=== PATIENT | female | born 1985 | race Caucasian/White ===

== ENCOUNTER → 2016-09-05 | Outpatient (CLI) | payer BC ==
[~2016-09-05] MED LIST: Iopamidol 755 Mg/ML 100 ML Bottle IVPUSH STA
[2016-09-05] MEDS: Iopamidol 612 MG/ML 100 ML Bottle IVPUSH ONE (16:14)
--- NOTE | 2016-09-06 20:24 | US ---
EXAMINATION: Hysterosalpingogram. HISTORY: Infertility. Evaluate for tubal patency. PROCEDURE/FINDINGS: Written informed consent was obtained from the patient. Perineum was prepped wit h Betadine and after placement of vaginal speculum, the cervix was prepped with Betadine. A 5 Cameroonian catheter was placed and after inflation of the balloon, 10 cc of contrast was injected until cornua l regions are filled and multiple views of the pelvis are obtained. The uterine cavity is normal in configuration. No suspicious filling defects are seen. The right and left fallopian tubes are patent and spillage of contrast is noted into peritoneal cavi ty bilaterally. IMPRESSION: Patent fallopian tubes bilaterally.
== END | disposition home or self-care (01) ==
LOC: MW.DI 11:13
PROVIDERS: ATTEND Obstetrics & Gynecology
DX: Z31.49 Encounter for other procreative investigation and testing (principal)
CPT/HCPCS: 58340; 74740; Q9967

== ENCOUNTER 2018-07-13 07:19 | Inpatient (IN) | payer BC ==
[2018-07-13] MEDS ORDERED: Sodium Chloride 0.9% 2.5 ML Syringe FLUSH PRN (07:50)
[2018-07-13] MEDS ORDERED: ceFAZolin 2 GM in Premix Bag 1 BAG IV ONE (07:50)
[2018-07-13] MEDS ORDERED: Citric Acid/Sodium Citrate Solution 30 ML Cup PO ONE (07:50)
[2018-07-13] MEDS ORDERED: Oxytocin/0.9 % Sodium Chloride 30 UNIT/500 ML BAG IV SCH (08:00)
[2018-07-13] MEDS: Sodium Chloride 0.9% 10 ML Syringe FLUSH PRN ×2 (08:08→23:40)
[2018-07-13] MEDS: Lactated Ringers 1,000 ML IV SCH ×3 (08:10→10:17)
[2018-07-13] MEDS ORDERED: Sodium Chloride 0.9% 40 ML ONE (08:51)
[2018-07-13] MEDS ORDERED: ceFAZolin 1 GM Vial ONE (08:51)
[2018-07-13] MEDS ORDERED: ePHEDrine 50 MG/ML SDV ONE (08:51)
[2018-07-13] MEDS ORDERED: Ondansetron 4 MG/2 ML SDV ONE (08:51)
--- NOTE | 2018-07-13 08:58 | PCM.PREANE ---
Preanesthetic Assessment - Anesthesia/Transfusion/Family Hx Anesthesia History: Prior Anesthesia Without Reaction (prior scheduled c section 6 years ago) Transfusion History: No Prior Transfusion(s) - Review of Systems General: No Symptoms Pulmonary: No Symptoms Cardiovascular: No Symptoms Gastrointestinal: No Symptoms Neurological: No Symptoms Other: Reports: None - Physical Assessment NPO Status Date: 07/12/18 Height: 5 ft 4.17 in Weight: 102.058 kg ASA Class: 2 Mental Status: Alert & Oriented x3 Airway Class: Mallampati = 1 Dentition: Reports: Broken Tooth/Teeth, Caries ROM/Head Extension: Full Lungs: Clear to Auscultation, Normal Respiratory Effort Cardiovascular: Regular Rate, Regular Rhythm - Lab Values: Laboratory Last Values WBC 9.15 K/uL (4.0-11.0) 07/13/18 08:07 RBC 4.22 M/uL (4.30-5.90) L 07/13/18 08:07 Hgb 12.7 g/dL (12.0-16.0) 07/13/18 08:07 Hct 37.2 % (36.0-46.0) 07/13/18 08:07 MCV 88.2 fL (80.0-98.0) 07/13/18 08:07 MCH 30.1 pg (27.0-32.0) 07/13/18 08:07 MCHC 34.1 g/dL (31.0-37.0) 07/13/18 08:07 RDW Std Deviation 45.7 fl (28.0-62.0) 07/13/18 08:07 RDW Coeff of Albert 14 % (11.0-15.0) 07/13/18 08:07 Plt Count 206 K/uL (150-400) 07/13/18 08:07 MPV 10.90 fL (7.40-12.00) 07/13/18 08:07 Nucleated RBC % 0.0 /100WBC 07/13/18 08:07 Nucleated RBCs # 0 K/uL 07/13/18 08:07 - Allergies Allergies/Adverse Reactions: Allergies Allergy/AdvReac Type Severity Reaction Status Date / Time TB skin test Allergy Rash Uncoded 07/08/18 11:54 - Blood Blood Available: Yes - Anesthesia Plan Pre-Op Medication Ordered: Antacids - Acknowledgements Anesthesia Type Planned: Spinal Pt an Appropriate Candidate for the Planned Anesthesia: Yes Alternatives and Risks of Anesthesia Discussed w Pt/Guardian: Yes Pt/Guardian Understands and Agrees with Anesthesia Plan: Yes Additional Comments: PMH: term , notin labor, hx of gest DM with first (not with this ) PLAN: spinal with intrathecal duramorph PreAnesthesia Questionnaire HEENT History: Reports: Allergic Rhinitis Cardiovascular History: Reports: None Respiratory History: Reports: Asthma Other Respiratory History: hx of sports induced asthma-does not have any inhalers at this time, no er visits in the past year, and she in not taking steroids. Gastrointestinal History: Reports: Other (See Below) Other Gastrointestinal History: occasional heartburn Genitourinary History: Reports: None TEACHING YOUNG History: Reports: Musculoskeletal History: Reports: None Neurological History: Reports: None Psychiatric History: Reports: None Endocrine/Metabolic History: Reports: Diabetes, Gestational, Obesity/BMI 30+ Hematologic History: Reports: None Immunologic History: Reports: None Oncologic (Cancer) History: Reports: None Dermatologic History: Reports: None - Past Surgical History Head Surgeries/Procedures: Reports: None HEENT Surgical History: Reports: Myringotomy w Tube(s), Oral Surgery Respiratory Surgical History: Reports: None GI Surgical History: Reports: None Female Surgical History: Reports: Section, D&C Other Female Surgeries/Procedures: hysteroscopy with polypectomy with D&C - SUBSTANCE USE Smoking Status *Q: Never Smoker Tobacco Use Within Last Twelve Months: No Second Hand Smoke Exposure: No Recreational Drug Use History: No - HOME MEDS Home Medications: Home Meds Cetirizine [ZyrTEC] 10 mg PO DAILY 06/15/18 [History] Pnv No.95/Ferrous Fum/Folic AC [ Caplet] 1 each PO DAILY 06/15/18 [ History] Calcium Carbonate [Tums] 1 tab.chew CHEW ASDIRECTED PRN 07/08/18 [History] - CURRENT (IN HOUSE) MEDS Current Meds: Current Medications Lactated Ringer's (Ringers, Lactated) 1,000 mls @ 500 mls/hr IV BOLUS BHARATI Last Admin: 07/13/18 08:10 Dose: 999 mls/hr Oxytocin/Sodium Chloride (Oxytocin 30 Unit/500 Ml-Ns) 30 unit in 500 mls @ 250 mls/hr IV TITRATE BHARATI Sodium Chloride (Saline Flush) 10 ml FLUSH ASDIRECTED PRN PRN Reason: Keep Vein Open Last Admin: 07/13/18 08:08 Dose: 10 ml Sodium Chloride (Saline Flush) 2.5 ml FLUSH ASDIRECTED PRN PRN Reason: Keep Vein Open Discontinued Medications Citric Acid/Sodium Citrate (Bicitra Solution) 30 ml PO ONETIME ONE Stop: 07/13/18 07:51 Cefazolin Sodium/Dextrose 2 gm (/ Premix) 50 mls @ 100 mls/hr IV ONETIME ONE Stop: 07/13/18 08:19
[2018-07-13] MEDS ORDERED: Oxytocin/0.9 % Sodium Chloride 30 UNIT/500 ML BAG ONE (10:01)
[2018-07-13] MEDS ORDERED: Phenylephrine 1% 10 MG/ML SDV ONE (10:02)
[2018-07-13] MEDS ORDERED: Morphine PF 10 MG/10 ML SDV ONE (10:05)
[2018-07-13] MEDS ORDERED: Nalbuphine 10 MG/1 ML Vial IVPUSH PRN (10:50)
[2018-07-13] MEDS ORDERED: fentaNYL 100 MCG/2 ML SDV IVPUSH PRN (10:50)
[2018-07-13] MEDS ORDERED: HYDROmorphone 2 MG/ML Syringe IVPUSH ONE (10:50)
[2018-07-13] MEDS ORDERED: Midazolam 1 MG/ML 2 ML SDV ONE (11:03)
[2018-07-13] MEDS ORDERED: Sodium Chloride 0.9% 20 ML ONE (11:04)
[2018-07-13] MEDS ORDERED: Bisacodyl 10 MG Supp RECTAL PRN (11:45)
[2018-07-13] MEDS ORDERED: diphenhydrAMINE 50 MG/ML SDV IVPUSH PRN (11:45)
[2018-07-13] MEDS ORDERED: Lactated Ringers 1,000 ML IV SCH (11:45)
[2018-07-13] MEDS ORDERED: Lanolin 100% Cream 7 GM Tube TOP PRN (11:45)
[2018-07-13] MEDS ORDERED: Ondansetron 4 MG/2 ML SDV IVPUSH PRN (11:45)
[2018-07-13] MEDS ORDERED: Acetaminophen/oxyCODONE 325-5 MG Tab PO PRN ×2 (11:45)
[2018-07-13] MEDS ORDERED: Ibuprofen 800 MG Tab PO PRN (11:45)
--- NOTE | 2018-07-13 11:57 | PCM.OPNOTE ---
- General Post-Op/Procedure Note Date of Surgery/Procedure: 07/13/18 Operative Procedure(s): Repeat elective section Findings: Male infant, wt 3840 grams. Apgard 9 and 9. Grossly normal placenta with vessel cord. Normal appearing uterus, tubes and ovaries. No adhesions Pre Op Diagnosis: 1) IUP at 39 weeks. 2) Previous c-s ection, declined Post-Op Diagnosis: Same Anesthesia Technique: Spinal Primary Surgeon: Sybil Jiménez Fluid Replacement, Intraop: 1,200 Output, Urine Amount: 250 EBL in mLs: 700 Complications: None Condition: Good
[2018-07-13] MEDS: Ketorolac 30 MG/ML SDV IVPUSH SCH ×3 (12:02→23:37)
--- NOTE | 2018-07-13 12:12 | PCM.POSTAN ---
POST ANESTHESIA ASSESSMENT - MENTAL STATUS Mental Status: Alert, Oriented - RESPIRATORY Respiratory Status: Respiratory Rate WNL, Airway Patent, O2 Saturation Stable - CARDIOVASCULAR CV Status: Pulse Rate WNL, Blood Pressure Stable - GASTROINTESTINAL GI Status: No Symptoms - POST OP HYDRATION Hydration Status: Adequate & Stable
[2018-07-13] MEDS: Docusate Sodium 100 MG Cap PO SCH (20:45)
--- NOTE | 2018-07-14 02:04 | OR ---
SURGEON: Sybil Jimnéez MD DATE OF PROCEDURE: 07/13/2018 PREOPERATIVE DIAGNOSES: 1. Term at 39 weeks gestation. 2. Repeat elective section. 3. Prior section, declined . POSTOPERATIVE DIAGNOSES: 1. Term at 39 weeks gestation. 2. Repeat elective section. 3. Prior section, declined . 4. Delivered. PROCEDURE: Repeat low transverse section via Pfannenstiel. ANESTHESIA: Spinal. ESTIMATED BLOOD LOSS: 800 mL. IV FLUIDS: 1200 mL of crystalloid. URINE OUTPUT: 250 mL clear at the end of the procedure. COMPLICATIONS: None. DISPOSITION: Stable to recovery room. FINDINGS: Male infant, weight 3840 g, scores 9 at 9 at one and five minutes respectively. Grossly normal placenta with 3-vessel cord. Grossly normal- appearing uterus, tubes, and ovaries. No intraabdominal or pelvic adhesions visualized. INDICATIONS: Kailyn is a 33-year-old, G2, P1-0-0-1, who was admitted for a repeat elective section for history of a prior section. She declined a trial of labor after section. DESCRIPTION OF PROCEDURE: The patient was taken to the operating room where spinal anesthesia was performed and found to be adequate. She was then prepped and draped in the usual sterile fashion in a dorsal supine position with a leftward tilt. SCDs were placed. She received 2 g of Ancef and appropriate time-out was held. A Pfannenstiel skin incision was made along the old scar with the scalpel and carried through to the underlying layer of fascia with the Bovie. The fascia was incised in the midline and extended laterally with the Johnson scissors. The superior aspect of this fascial incision was grasped with Andreina clamps, elevated, and the underlying rectus muscles were dissected off with the Johnson scissors. Attention was turned to the inferior aspect of this incision which in similar fashion was grasped with Andreina clamps, tented up and the rectus muscle dissected off with the Johnson's. The rectus muscle was in the midline carefully until the parietal peritoneum was reached and this was entered bluntly. A careful sweep digitally underneath the parietal peritoneum revealed no intraabdominal adhesions. The incision was then further extended upwards and downwards with good visualization of the bladder and other internal organs by both blunt and sharp dissection. An Marcello O retractor was then inserted into the abdominal cavity. The vesicouterine peritoneum was identified, grasped with pickups, and entered sharply with the Metzenbaum scissors and a bladder flap was created digitally. The lower uterine segment was then incised in a transverse fashion with the scalpel and extended upwards and downwards bluntly. The 's head was then lifted out of the pelvis and delivered atraumatically followed by the rest of the baby. The baby was vigorous and cried spontaneously at . The cord was double clamped and cut and the was handed over to the awaiting nursery staff. Cord blood and gas samples were obtained. The placenta was then delivered spontaneously via massage. The uterus was cleaned of all clots and debris. The hysterotomy was repaired in two layers using 0 Vicryl. The first layer was repaired in a running locked fashion, and the second imbricating layer was performed to obtain excellent hemostasis. A couple of hemostatic [id number] stitches was placed at the left angle of the hysterotomy using 0 Vicryl to control the bleeding vessel. It was hemostatic thereafter. The gutters were cleaned of all clots and debris, and the tubes and ovaries were inspected. Hemostasis was evident along the hysterotomy site. The Marcello O retractor was removed. The parietal edges were identified and this layer was closed with a 2-0 Vicryl in a running fashion. The subfascial layer was found to be hemostatic. The fascia was then approximated with 0 Vicryl in a running fashion. The subcutaneous layer was made hemostatic with the Bovie. The skin was then closed using subcuticular stitches with a 4-0 Monocryl suture. The patient tolerated the procedure well. Sponge, instrument, and needle counts were reported as correct at the end of the procedure. The patient was taken to the recovery room in stable condition and the baby to the nursery in a stable condition. ADUMVIV / MODL /[id number] CARLOS
[2018-07-14] MEDS: Ketorolac 30 MG/ML SDV IVPUSH SCH ×2 (05:29→12:23)
--- NOTE | 2018-07-14 06:59 | PCM.PNPP ---
- General Info Date of Service: 07/14/18 Functional Status: Reports: Pain Controlled, Tolerating Diet, Ambulating - Review of Systems General: Denies: Fever, Weakness HEENT: Denies: Headaches Pulmonary: Denies: Shortness of Breath, Pleuritic Chest Pain Cardiovascular: Denies: Chest Pain, Palpitations, Dyspnea on Exertion Gastrointestinal: Denies: Abdominal Pain Genitourinary: Denies: Flank Pain - General Info Date of Service: 07/14/18 - Patient Data Vital Signs - Most Recent: Last Vital Signs Temp 36.9 C 07/14/18 04:00 Pulse 75 07/14/18 04:00 Resp 20 07/14/18 05:00 BP 99/57 L 07/14/18 04:00 Pulse Ox 97 07/14/18 05:00 Weight - Most Recent: 225 lb 0.003 oz I&O - Last 24 Hours: Intake & Output 07/13/18 07/13/18 07/14/18 14:59 22:59 06:59 Intake Total 3740 1000 Output Total 990 404 5725 Balance 3240 880 -1175 Lab Results - Last 24 Hours: Laboratory Results - last 24 hr 07/13/18 07/13/18 07/13/18 Range/Units 08:07 08:07 10:24 WBC 9.15 (4.0-11.0) K/uL RBC 4.22 L (4.30-5.90) M/uL Hgb 12.7 (12.0-16.0) g/dL Hct 37.2 (36.0-46.0) % MCV 88.2 (80.0-98.0) fL MCH 30.1 (27.0-32.0) pg MCHC 34.1 (31.0-37.0) g/dL RDW Std Deviation 45.7 (28.0-62.0) fl RDW Coeff of Albert 14 (11.0-15.0) % Plt Count 206 (150-400) K/uL MPV 10.90 (7.40-12.00) fL Nucleated RBC % 0.0 /100WBC Nucleated RBCs # 0 K/uL Cord ABG pH 7.346 (7.18-7.38) Cord ABG Base Excess -3 (-10--2) Cord VBG pH 7.408 (7.25-7.45) Cord VBG Base Excess -2 (-10--2) Blood Type A POSITIVE Antibody Screen NEGATIVE 07/14/18 Range/Units 06:00 WBC (4.0-11.0) K/uL RBC (4.30-5.90) M/uL Hgb 10.3 L (12.0-16.0) g/dL Hct 29.9 L (36.0-46.0) % MCV (80.0-98.0) fL MCH (27.0-32.0) pg MCHC (31.0-37.0) g/dL RDW Std Deviation (28.0-62.0) fl RDW Coeff of Albert (11.0-15.0) % Plt Count (150-400) K/uL MPV (7.40-12.00) fL Nucleated RBC % /100WBC Nucleated RBCs # K/uL Cord ABG pH (7.18-7.38) Cord ABG Base Excess (-10--2) Cord VBG pH (7.25-7.45) Cord VBG Base Excess (-10--2) Blood Type Antibody Screen Med Orders - Current: Current Medications Bisacodyl (Dulcolax) 10 mg RECTAL ONETIME PRN PRN Reason: Constipation Diphenhydramine HCl (Benadryl) 25 mg IVPUSH Q6H PRN PRN Reason: Itching or Nausea Docusate Sodium (Colace) 100 mg PO BID [facility] Last Admin: 07/13/18 20:45 Dose: 100 mg Emollient Ointment (Lansinoh Hpa) 0 gm TOP ASDIRECTED PRN PRN Reason: Sore Nipples Last Admin: 07/13/18 23:40 Dose: 1 tube Fentanyl (Sublimaze) 50 mcg IVPUSH Q5M PRN PRN Reason: Pain (severe 7-10) Stop: 07/14/18 10:50 Lactated Ringer's (Ringers, Lactated) 1,000 mls @ 125 mls/hr IV ASDIRECTED [facility] Last Admin: 07/13/18 15:41 Dose: 125 mls/hr Ibuprofen (Motrin) 800 mg PO Q8H PRN PRN Reason: mild pain or fever Ketorolac Tromethamine (Toradol) 30 mg IVPUSH Q6H [facility] Stop: 07/14/18 11:46 Last Admin: 07/14/18 05:29 Dose: 30 mg Nalbuphine HCl (Nubain) 2.5 mg IVPUSH Q3H PRN PRN Reason: Pruritis Stop: 07/14/18 10:51 Last Admin: 07/13/18 23:33 Dose: 2.5 mg Ondansetron HCl (Zofran) 4 mg IVPUSH Q4H PRN PRN Reason: Nausea/Vomiting Oxycodone/Acetaminophen (Percocet 325-5 Mg) 1 tab PO Q4H PRN PRN Reason: Pain (moderate 4-6) Oxycodone/Acetaminophen (Percocet 325-5 Mg) 2 tab PO Q4H PRN PRN Reason: Pain (moderate 4-6) Discontinued Medications Cefazolin Sodium (Ancef) Confirm Administered Dose 2 gm .ROUTE .STK-MED ONE Stop: 07/13/18 08:52 Citric Acid/Sodium Citrate (Bicitra Solution) 30 ml PO ONETIME ONE Stop: 07/13/18 07:51 Last Admin: 07/13/18 09:25 Dose: 30 ml Ephedrine Sulfate (Ephedrine Sulfate) Confirm Administered Dose 50 mg .ROUTE .STK-MED ONE Stop: 07/13/18 08:52 Hydromorphone HCl (Dilaudid) 2 mg IVPUSH ONETIME ONE Stop: 07/13/18 10:51 Cefazolin Sodium/Dextrose 2 gm (/ Premix) 50 mls @ 100 mls/hr IV ONETIME ONE Stop: 07/13/18 08:19 Lactated Ringer's (Ringers, Lactated) 1,000 mls @ 500 mls/hr IV BOLUS [facility] Last Admin: 07/13/18 10:17 Dose: 999 mls/hr Oxytocin/Sodium Chloride (Oxytocin 30 Unit/500 Ml-Ns) 30 unit in 500 mls @ 250 mls/hr IV TITRATE BHARATI Sodium Chloride (Normal Saline) Confirm Administered Dose 40 mls @ as directed .ROUTE .STK-MED ONE Stop: 07/13/18 08:52 Oxytocin/Sodium Chloride (Oxytocin 30 Unit/500 Ml-Ns) Confirm Administered Dose 30 unit in 500 mls @ as directed .ROUTE .STK-MED ONE Stop: 07/13/18 10:02 Sodium Chloride (Normal Saline) Confirm Administered Dose 20 mls @ as directed .ROUTE .STK-MED ONE Stop: 07/13/18 11:05 Midazolam HCl (Versed 1 Mg/Ml) Confirm Administered Dose 2 mg .ROUTE .STK-MED ONE Stop: 07/13/18 11:04 Morphine Sulfate (Duramorph Pf) Confirm Administered Dose 10 mg .ROUTE .STK-MED ONE Stop: 07/13/18 10:06 Ondansetron HCl (Zofran) Confirm Administered Dose 4 mg .ROUTE .STK-MED ONE Stop: 07/13/18 08:52 Phenylephrine HCl (Saeed-Synephrine) Confirm Administered Dose 10 mg .ROUTE .STK- MED ONE Stop: 07/13/18 10:03 Sodium Chloride (Saline Flush) 10 ml FLUSH ASDIRECTED PRN PRN Reason: Keep Vein Open Last Admin: 07/13/18 23:40 Dose: 10 ml Sodium Chloride (Saline Flush) 2.5 ml FLUSH ASDIRECTED PRN PRN Reason: Keep Vein Open - Interaction Infant Feeding: Breastfed ; Nursed Well, Continues to Breastfeed Support Person: , Mother - Recovery Exam Fundal Tone: Firm Fundal Level: 1 Fingerbreadths Below Umbilicus Fundal Placement: Right Lochia Amount: Scant Lochia Color: Rubra/Red Perineum Description: Intact, Minimal Bruising/Swelling Episiotomy/Laceration: None Urinary Elimination: Not Voiding, Other (see below) (Catheter removed this am, yet to void) - Exam General: Alert, Oriented HEENT: Pupils Equal Neck: Supple Lungs: Clear to Auscultation, Normal Respiratory Effort Cardiovascular: Regular Rate, Regular Rhythm GI/Abdominal Exam: Normal Bowel Sounds, Soft, Non-Tender Extremities: Non-Tender, Pedal Edema Skin: Warm Wound/Incisions: Healing Well Psy/Mental Status: Alert, Normal Affect, Normal Mood - Problem List & Annotations (1) delivery delivered SNOMED Code(s): 515717731 Code(s): O82 - ENCOUNTER FOR DELIVERY WITHOUT INDICATION Status: Acute Current Visit: Yes - Problem List Review Problem List Initiated/Reviewed/Updated: Yes - My Orders Last 24 Hours: My Active Orders 07/13/18 07:50 Non Stress Test [RC] PER UNIT ROUTINE Procedure Site Prep Instruct [RC] ASDIRECTED Up ad [place] [RC] ASDIRECTED Verify Patient Consent Obtain [RC] ASDIRECTED Vital Signs [RC] PER UNIT ROUTINE 07/13/18 07:52 Notify Provider Vital Signs [RC] PRN 07/13/18 11:45 Patient Status [ADT] Routine Ambulate [RC] PER UNIT ROUTINE Communication Order [RC] PER UNIT ROUTINE Communication Order [RC] PER UNIT ROUTINE Communication Order [RC] Per Unit Routine May Shower [RC] ASDIRECTED RT Incentive Spirometry [RC] Q2HWA Acetaminophen/oxyCODONE [Percocet 325-5 MG] 1 tab PO Q4H PRN Acetaminophen/oxyCODONE [Percocet 325-5 MG] 2 tab PO Q4H PRN Bisacodyl [Dulcolax] 10 mg RECTAL ONETIME PRN Ibuprofen [Motrin] 800 mg PO Q8H PRN Ketorolac [Toradol] 30 mg IVPUSH Q6H Lactated Ringers [Ringers, Lactated] 1,000 ml IV ASDIRECTED Lanolin [Lansinoh HPA] See Dose Instructions TOP ASDIRECTED PRN Ondansetron [Zofran] 4 mg IVPUSH Q4H PRN diphenhydrAMINE [Benadryl] 25 mg IVPUSH Q6H PRN Abdominal Binder [OM.PC] Routine Assess Lochia [WOMSER] Per Unit Routine Assess Uterine Involution [WOMSER] Per Unit Routine Breast Pump [WOMSER] Per Unit Routine Peripheral IV Discontinue [OM.PC] Routine Sequential Compression Device [OM.PC] Per Unit Routine Resuscitation Status Routine 07/13/18 11:46 Notify Provider Intake and Out [RC] ASDIRECTED Notify Provider Vital Signs [RC] ASDIRECTED 07/13/18 11:47 Intake and Output [RC] Q4H 07/13/18 21:00 Docusate Sodium [Colace] 100 mg PO BID 07/13/18 Dinner Regular Diet [DIET] - Assessment Assessment:: POD#1 s/p RLTCS, doing well. Stable and afebrile - Plan Plan:: Continue current care and aim for discharge tomorrow.
--- NOTE | 2018-07-14 07:44 | PCM48HPAN ---
Post Anesthesia Note - EVALUATION WITHIN 48HRS OF ANESTHETIC Vital Signs in Normal Range: Yes Patient Participated in Evaluation: Yes Respiratory Function Stable: Yes Airway Patent: Yes Cardiovascular Function Stable: Yes Hydration Status Stable: Yes Pain Control Satisfactory: Yes Nausea and Vomiting Control Satisfactory: Yes Mental Status Recovered: Yes Resp Rate: 20 - COMMENTS/OBSERVATIONS Free Text/Narrative:: Pt states she has been out of bed without problems. Slight itching overnight related to duramorph, but relieved with medication. No apparent anesthesia complications.
[2018-07-14] MEDS: Docusate Sodium 100 MG Cap PO SCH ×2 (09:42→20:18)
[2018-07-14] MEDS ORDERED: Simethicone 80 MG Tab.Chew PO PRN (15:41)
--- NOTE | 2018-07-15 08:12 | PCM.PNPP ---
- General Info Date of Service: 07/15/18 Functional Status: Reports: Pain Controlled, Tolerating Diet, Ambulating, Urinating - Review of Systems General: Denies: Fever, Chills HEENT: Denies: Headaches Pulmonary: Denies: Shortness of Breath, Pleuritic Chest Pain, Cough Cardiovascular: Denies: Chest Pain, Palpitations, Dyspnea on Exertion Gastrointestinal: Denies: Abdominal Pain Genitourinary: Denies: Dysuria, Incontinence, Hematuria, Flank Pain Psychiatric: Reports: Confusion, Depression, Mood Lability, Anxiety - General Info Date of Service: 07/15/18 - Patient Data Vital Signs - Most Recent: Last Vital Signs Temp 36.4 C 07/15/18 04:00 Pulse 85 07/15/18 04:00 Resp 16 07/15/18 04:00 BP 110/61 07/15/18 04:00 Pulse Ox 98 07/15/18 04:00 Weight - Most Recent: 225 lb 0.003 oz Med Orders - Current: Current Medications Bisacodyl (Dulcolax) 10 mg RECTAL ONETIME PRN PRN Reason: Constipation Diphenhydramine HCl (Benadryl) 25 mg IVPUSH Q6H PRN PRN Reason: Itching or Nausea Docusate Sodium (Colace) 100 mg PO BID [facility] Last Admin: 07/14/18 20:18 Dose: 100 mg Emollient Ointment (Lansinoh Hpa) 0 gm TOP ASDIRECTED PRN PRN Reason: Sore Nipples Last Admin: 07/13/18 23:40 Dose: 1 tube Lactated Ringer's (Ringers, Lactated) 1,000 mls @ 125 mls/hr IV ASDIRECTED [facility] Last Admin: 07/13/18 15:41 Dose: 125 mls/hr Ibuprofen (Motrin) 800 mg PO Q8H PRN PRN Reason: mild pain or fever Ondansetron HCl (Zofran) 4 mg IVPUSH Q4H PRN PRN Reason: Nausea/Vomiting Oxycodone/Acetaminophen (Percocet 325-5 Mg) 1 tab PO Q4H PRN PRN Reason: Pain (moderate 4-6) Last Admin: 07/14/18 18:59 Dose: 1 tab Oxycodone/Acetaminophen (Percocet 325-5 Mg) 2 tab PO Q4H PRN PRN Reason: Pain (moderate 4-6) Last Admin: 07/15/18 03:04 Dose: 2 tab Simethicone (Simethicone) 160 mg PO Q6H PRN PRN Reason: gas relief Last Admin: 07/14/18 16:38 Dose: 160 mg Discontinued Medications Cefazolin Sodium (Ancef) Confirm Administered Dose 2 gm .ROUTE .STK-MED ONE Stop: 07/13/18 08:52 Citric Acid/Sodium Citrate (Bicitra Solution) 30 ml PO ONETIME ONE Stop: 07/13/18 07:51 Last Admin: 07/13/18 09:25 Dose: 30 ml Ephedrine Sulfate (Ephedrine Sulfate) Confirm Administered Dose 50 mg .ROUTE .STK-MED ONE Stop: 07/13/18 08:52 Fentanyl (Sublimaze) 50 mcg IVPUSH Q5M PRN PRN Reason: Pain (severe 7-10) Stop: 07/14/18 10:50 Hydromorphone HCl (Dilaudid) 2 mg IVPUSH ONETIME ONE Stop: 07/13/18 10:51 Cefazolin Sodium/Dextrose 2 gm (/ Premix) 50 mls @ 100 mls/hr IV ONETIME ONE Stop: 07/13/18 08:19 Lactated Ringer's (Ringers, Lactated) 1,000 mls @ 500 mls/hr IV BOLUS [facility] Last Admin: 07/13/18 10:17 Dose: 999 mls/hr Oxytocin/Sodium Chloride (Oxytocin 30 Unit/500 Ml-Ns) 30 unit in 500 mls @ 250 mls/hr IV TITRATE [facility] Sodium Chloride (Normal Saline) Confirm Administered Dose 40 mls @ as directed .ROUTE .STK-MED ONE Stop: 07/13/18 08:52 Oxytocin/Sodium Chloride (Oxytocin 30 Unit/500 Ml-Ns) Confirm Administered Dose 30 unit in 500 mls @ as directed .ROUTE .STK-MED ONE Stop: 07/13/18 10:02 Sodium Chloride (Normal Saline) Confirm Administered Dose 20 mls @ as directed .ROUTE .STK-MED ONE Stop: 07/13/18 11:05 Ketorolac Tromethamine (Toradol) 30 mg IVPUSH Q6H [facility] Stop: 07/14/18 11:46 Last Admin: 07/14/18 12:23 Dose: 30 mg Midazolam HCl (Versed 1 Mg/Ml) Confirm Administered Dose 2 mg .ROUTE .STK-MED ONE Stop: 07/13/18 11:04 Morphine Sulfate (Duramorph Pf) Confirm Administered Dose 10 mg .ROUTE .STK-MED ONE Stop: 07/13/18 10:06 Nalbuphine HCl (Nubain) 2.5 mg IVPUSH Q3H PRN PRN Reason: Pruritis Stop: 07/14/18 10:51 Last Admin: 07/13/18 23:33 Dose: 2.5 mg Ondansetron HCl (Zofran) Confirm Administered Dose 4 mg .ROUTE .STK-MED ONE Stop: 07/13/18 08:52 Phenylephrine HCl (Saeed-Synephrine) Confirm Administered Dose 10 mg .ROUTE .STK- MED ONE Stop: 07/13/18 10:03 Sodium Chloride (Saline Flush) 10 ml FLUSH ASDIRECTED PRN PRN Reason: Keep Vein Open Last Admin: 07/13/18 23:40 Dose: 10 ml Sodium Chloride (Saline Flush) 2.5 ml FLUSH ASDIRECTED PRN PRN Reason: Keep Vein Open - Interaction Feeding: Breastfed Infant; Nursed Well, Continues to Breastfeed Support Person: , Mother - Recovery Exam Fundal Tone: Firm Fundal Level: 1 Fingerbreadths Below Umbilicus Fundal Placement: Midline Lochia Amount: Scant Lochia Color: Rubra/Red Perineum Description: Intact, Minimal Bruising/Swelling Episiotomy/Laceration: None Bladder Status: Nonpalpable, Voiding Urinary Elimination: Voided - Exam General: Alert, Oriented Lungs: Clear to Auscultation, Normal Respiratory Effort Cardiovascular: Regular Rate, Regular Rhythm GI/Abdominal Exam: Normal Bowel Sounds Extremities: Non-Tender, Pedal Edema Skin: Warm Wound/Incisions: Healing Well Psy/Mental Status: Alert, Normal Affect, Normal Mood - Problem List & Annotations (1) delivery delivered SNOMED Code(s): 065376178 Code(s): O82 - ENCOUNTER FOR DELIVERY WITHOUT INDICATION Status: Acute Current Visit: Yes - Problem List Review Problem List Initiated/Reviewed/Updated: Yes - Assessment Assessment:: POD#2 s/p RLTCS, doing well. Stable and afebrile Clinically stable for discharge - Plan Plan:: Discharge precautions reviewed Nothing in the vagina for 6 weeks Continue PNV. Bleeding and infection precautions reviewed depression S/S reviewed, encouraged to call with concerns Follow up in clinic- already scheduled
[2018-07-15] MEDS: Docusate Sodium 100 MG Cap PO SCH (09:24)
[2018-07-15 18:08] VITALS: BP 113/65
== END 2018-07-15 12:00 | disposition home or self-care (01) | DRG 540 ==
LOC: MW.OB 07:19
PROVIDERS: ADMIT Obstetrics & Gynecology; ATTEND Obstetrics & Gynecology
PROC: 10D00Z1 Extraction of Products of Conception, Low, Open Approach (ICD-10-PCS; principal; 2018-07-13)
PROC: 6A550ZT Pheresis of Cord Blood Stem Cells, Single (ICD-10-PCS; principal; 2018-07-13)
DX: O34.211 Maternal care for low transverse scar from previous cesarean delivery (principal); N85.8 Other specified noninflammatory disorders of uterus; O99.214 Obesity complicating childbirth; E66.9 Obesity, unspecified; Z3A.39 39 weeks gestation of pregnancy; Z37.0 Single live birth; O99.52 Diseases of the respiratory system complicating childbirth; J45.909 Unspecified asthma, uncomplicated
CPT/HCPCS: 36415; 59025; 82803; 85014; 85018; 85027; 86850; 86900; 86901; A9270-GY; J0690; J1885; J2250; J2270; J2300; J2370; J2405; J2590; J7120

== ENCOUNTER 2022-07-13 08:21 | Emergency (ER) | payer BC ==
[2022-07-13 09:50] LABS: CARBON DIOXIDE,CO2 27.4 mmol/L (21.0-32.0); POTASSIUM,K 3.6 mmol/L (3.5-5.1)
[2022-07-13 11:59] LABS: C. TRACHOMATIS BY PCR NOT DETECTED; N. GONORRHOEAE BY PCR NOT DETECTED
[2022-07-13 12:14] VITALS: BP 117/75; PULSE 80
== END 2022-07-13 11:52 | disposition home or self-care (01) ==
LOC: MW.ED 08:21
DX: O03.9 Complete or unspecified spontaneous abortion without complication (principal); Z88.8 Allergy status to other drugs, medicaments and biological substances
CPT/HCPCS: 36415; 76817; 76817-26; 80053; 81001; 84702; 85025; 87480; 87491; 87510; 87591; 87660; 99283; 99284

== ENCOUNTER 2023-05-09 14:29 | Inpatient (IN) | payer BC ==
[2023-05-09] MEDS ORDERED: Sodium Chloride 0.9% 10 ML Syringe FLUSH PRN (14:42)
[2023-05-09] MEDS ORDERED: Citric Acid/Sodium Citrate Solution 30 ML Cup PO ONE (14:42)
[2023-05-09] MEDS ORDERED: Sodium Chloride 0.9% 20 ML SDV IV PRN (14:42)
[2023-05-09] MEDS ORDERED: Sodium Chloride 0.9% 2.5 ML Syringe FLUSH PRN (14:42)
[2023-05-09] MEDS ORDERED: Lactated Ringers 1,000 ML IV SCH ×2 (14:45→17:30)
[2023-05-09] MEDS ORDERED: Oxytocin/0.9 % Sodium Chloride 30 UNIT/500 ML BAG IV SCH ×2 (14:45→17:30)
[2023-05-09] MEDS ORDERED: fentaNYL 50 MCG/ML SDV IVPUSH PRN (14:53)
[2023-05-09] MEDS ORDERED: droPERidol 5 MG/2 ML SDV IVPUSH PRN (14:53)
[2023-05-09] MEDS ORDERED: Albuterol 0.083% 2.5 MG/3 ML Neb Soln NEB PRN (14:53)
[2023-05-09] MEDS ORDERED: ePHEDrine 50 MG/ML SDV IVPUSH PRN (14:53)
[2023-05-09] MEDS ORDERED: fentaNYL 100 MCG/2 ML SDV IVPUSH PRN (14:53)
[2023-05-09] MEDS ORDERED: Ondansetron 4 MG/2 ML SDV IVPUSH PRN ×3 (14:53→17:24)
[2023-05-09] MEDS ORDERED: diphenhydrAMINE 50 MG/ML SDV IVPUSH PRN ×2 (14:53→17:24)
[2023-05-09] MEDS ORDERED: Metoclopramide 10 MG/2 ML SDV IVPUSH PRN (14:53)
[2023-05-09] MEDS ORDERED: Naloxone 0.4 MG/ML SDV IVPUSH PRN (14:53)
[2023-05-09] MEDS ORDERED: Morphine 2 MG/ML SYRINGE IVPUSH PRN (14:53)
[2023-05-09] MEDS ORDERED: Acetaminophen/oxyCODONE 325-5 MG Tab PO PRN ×2 (14:53→17:24)
[2023-05-09] MEDS ORDERED: HYDROmorphone 1 MG/ML Syringe IVPUSH PRN (14:53)
[2023-05-09 15:00] LABS: HEMATOCRIT 37.2 % (37.0-47.0); HEMOGLOBIN 13.9 g/dL (12.0-16.0); MEAN CORPUSCULAR HEMOGLOBIN 32.8 pg (28.0-32.0); MEAN CORPUSCULAR HGB CONC 37.4 g/dL (32.0-36.0); MEAN CORPUSCULAR VOLUME 87.7 fL (83.0-99.0); MEAN PLATELET VOLUME 10.5 fL (9.4-12.3); PLATELET COUNT,PLT 225 K/uL (150-400); RED BLOOD CELL COUNT 4.24 M/uL (4.10-5.30); WHITE BLOOD CELL COUNT,WBC 11.66 K/uL (3.9-11.3)
[2023-05-09] MEDS ORDERED: Oxytocin 10 Units/1 ML SDV ONE (15:01)
[2023-05-09] MEDS ORDERED: Dexamethasone 4 MG/ML 5 ML MDV ONE (15:01)
[2023-05-09] MEDS ORDERED: Ropivacaine 0.5% 5 MG/ML 30 ML SDV ONE (15:01)
[2023-05-09] MEDS ORDERED: ceFAZolin 1 GM Vial ONE (15:01)
[2023-05-09] MEDS ORDERED: Dexmedetomidine 200 MCG/2 ML SDV ONE (15:01)
[2023-05-09] MEDS ORDERED: Lidocaine 2% 5 ML SDV ONE (15:01)
[2023-05-09] MEDS ORDERED: Phenylephrine 1% 10 MG/ML SDV ONE (15:01)
[2023-05-09] MEDS ORDERED: Ketorolac 30 MG/ML SDV ONE (15:01)
[2023-05-09] MEDS ORDERED: Morphine PF 10 MG/10 ML SDV ONE (15:02)
[2023-05-09] MEDS ORDERED: Tranexamic Acid 1,000 MG/10 ML Vial ONE (15:06)
[2023-05-09 15:40] LABS: A/G RATIO 0.7 (0.9-1.6); ALBUMIN 3.1 g/dL (3.4-5.0); BILIRUBIN TOTAL 0.6 mg/dL (0.2-1.0); CALCIUM 8.9 mg/dL (8.5-10.1); CARBON DIOXIDE,CO2 22.6 mmol/L (21.0-32.0); CREATININE 0.7 mg/dL (0.6-1.0); EST CRCL DRUG DOSING (CG) 99.98 mL/min; POTASSIUM,K 3.7 mmol/L (3.5-5.1); PROTEIN TOTAL,TP 7.3 g/dL (6.4-8.2)
[2023-05-09] MEDS ORDERED: Glycopyrrolate 0.2 MG/ML SDV ONE (15:55)
[2023-05-09] MEDS ORDERED: Bisacodyl 10 MG Supp RECTAL PRN (17:24)
[2023-05-09] MEDS ORDERED: Misoprostol 200 MCG Tab RECTAL PRN (17:24)
[2023-05-09] MEDS ORDERED: Aluminum Hydroxide/Magnesium Hydroxide/Simethicone XS Susp 30 ML Cup PO PRN (17:24)
[2023-05-09] MEDS ORDERED: Lanolin 100% Cream 7 GM Tube TOP PRN (17:24)
[2023-05-09] MEDS ORDERED: Methylergonovine 0.2 MG/1 ML Amp IM PRN (17:24)
[2023-05-09] MEDS ORDERED: Temazepam 15 MG Cap PO PRN (17:24)
[2023-05-09] MEDS ORDERED: Ibuprofen 800 MG Tab PO PRN (17:24)
[2023-05-09] MEDS ORDERED: diphenhydrAMINE 25 MG Cap PO PRN (17:24)
[2023-05-09] MEDS ORDERED: Famotidine 20 MG Tab PO PRN (17:24)
[2023-05-09] MEDS ORDERED: Ketorolac 30 MG/ML SDV IVPUSH SCH (18:00)
[2023-05-09] MEDS ORDERED: Acetaminophen 1,000 MG in Premix Bag 1 BAG IV SCH (18:30)
[2023-05-09] MEDS: Docusate Sodium 100 MG Cap PO SCH (21:01)
[2023-05-09] MEDS: Ketorolac 30 MG/ML SDV IVPUSH SCH (22:34)
[2023-05-09] MEDS: Acetaminophen 1,000 MG in Premix Bag 1 BAG IV SCH (23:58)
[2023-05-09] MEDS: Simethicone 80 MG Tab.Chew PO SCH (23:59)
[2023-05-10] MEDS: Ketorolac 30 MG/ML SDV IVPUSH SCH ×3 (04:14→17:24)
[2023-05-10] MEDS: Acetaminophen 1,000 MG in Premix Bag 1 BAG IV SCH ×3 (05:56→18:00)
[2023-05-10] MEDS: Simethicone 80 MG Tab.Chew PO SCH ×3 (05:57→18:21)
[2023-05-10 06:06] LABS: BASOPHILS ABSOLUTE AUTO 0.01 K/uL (0.00-0.20); BASOPHILS PERCENT AUTO 0.1 % (0.0-1.0); EOSINOPHILS ABSOLUTE AUTO 0.01 K/uL (0.00-0.45); EOSINOPHILS PERCENT AUTO 0.1 % (0.0-6.0); HEMATOCRIT 29.4 % (37.0-47.0); HEMOGLOBIN 10.4 g/dL (12.0-16.0); IMMATURE GRAN ABSOLUTE AUTO 0.12 K/uL (0.00-0.05); IMMATURE GRAN PERCENT AUTO 0.7 % (0.0-0.4); LYMPHOCYTES PERCENT AUTO 12.2 % (24.0-44.0); MEAN CORPUSCULAR HEMOGLOBIN 31.2 pg (28.0-32.0); MEAN CORPUSCULAR HGB CONC 35.4 g/dL (32.0-36.0); MEAN CORPUSCULAR VOLUME 88.3 fL (83.0-99.0); MEAN PLATELET VOLUME 11.1 fL (9.4-12.3); MONOCYTES ABSOLUTE AUTO 1.17 K/uL (0.00-0.80); MONOCYTES PERCENT AUTO 6.5 % (0.0-8.0); NEUTROPHILS ABSOLUTE AUTO 14.56 K/uL (1.80-7.70); NEUTROPHILS PERCENT AUTO 80.4 % (41.0-71.0); PLATELET COUNT,PLT 223 K/uL (150-400); RED BLOOD CELL COUNT 3.33 M/uL (4.10-5.30); WHITE BLOOD CELL COUNT,WBC 18.07 K/uL (3.9-11.3)
[2023-05-10] MEDS: Prenatal Multivitamin with Calcium/Folic Acid/Iron Tab PO SCH (08:26)
[2023-05-10] MEDS: Ferrous Sulfate 325 MG Tab PO SCH ×3 (08:26→18:21)
[2023-05-10] MEDS: Docusate Sodium 100 MG Cap PO SCH ×2 (08:26→21:07)
[2023-05-10] MEDS ORDERED: Ferrous Sulfate 325 MG Tab PO SCH (17:00)
[2023-05-11] MEDS: Simethicone 80 MG Tab.Chew PO SCH ×3 (00:03→11:22)
[2023-05-11] MEDS: Acetaminophen/oxyCODONE 325-5 MG Tab PO PRN ×2 (06:03→12:38)
[2023-05-11] MEDS: Docusate Sodium 100 MG Cap PO SCH (08:10)
[2023-05-11] MEDS: Prenatal Multivitamin with Calcium/Folic Acid/Iron Tab PO SCH (08:10)
[2023-05-11] MEDS: Ferrous Sulfate 325 MG Tab PO SCH ×2 (08:10→11:22)
[2023-05-11 11:36] VITALS: BP 117/59; PULSE 83
[2023-05-11] MEDS ORDERED: Acetaminophen/oxyCODONE 325-5 MG Tab PO PRN (14:17)
== END 2023-05-11 13:16 | disposition home or self-care (01) | DRG 540 ==
LOC: MW.OB 14:29
PROVIDERS: ADMIT Obstetrics & Gynecology; ATTEND Obstetrics & Gynecology
PROC: 10D00Z1 Extraction of Products of Conception, Low, Open Approach (ICD-10-PCS; principal; 2023-05-09 17:00)
DX: O40.3XX0 Polyhydramnios, third trimester, not applicable or unspecified (principal); O99.02 Anemia complicating childbirth; O34.211 Maternal care for low transverse scar from previous cesarean delivery; D62 Acute posthemorrhagic anemia; Z37.0 Single live birth; Z98.890 Other specified postprocedural states; Z3A.37 37 weeks gestation of pregnancy
CPT/HCPCS: 36415; 59025; 80053; 85025; 85027; 86592; 86803; 86850; 86900; 86901; 87340; 87389; A9270-GY; J0131; J0690; J1100; J1885; J2274; J2371; J2590; J2795; J3490; J7120

== ENCOUNTER 2023-07-20 12:53 | Emergency (ER) | payer BC ==
[2023-07-20 13:27] LABS: BASOPHILS ABSOLUTE AUTO 0.04 K/uL (0.00-0.20); BASOPHILS PERCENT AUTO 0.5 % (0.0-1.0); EOSINOPHILS ABSOLUTE AUTO 0.15 K/uL (0.00-0.45); EOSINOPHILS PERCENT AUTO 1.9 % (0.0-6.0); HEMATOCRIT 41.3 % (37.0-47.0); HEMOGLOBIN 14.4 g/dL (12.0-16.0); IMMATURE GRAN ABSOLUTE AUTO 0.02 K/uL (0.00-0.05); IMMATURE GRAN PERCENT AUTO 0.3 % (0.0-0.4); LYMPHOCYTES ABSOLUTE AUTO 2.79 K/uL (1.00-4.80); LYMPHOCYTES PERCENT AUTO 35.2 % (24.0-44.0); MEAN CORPUSCULAR HEMOGLOBIN 29.1 pg (28.0-32.0); MEAN CORPUSCULAR HGB CONC 34.9 g/dL (32.0-36.0); MEAN CORPUSCULAR VOLUME 83.4 fL (83.0-99.0); MEAN PLATELET VOLUME 10.3 fL (9.4-12.3); MONOCYTES PERCENT AUTO 6.3 % (0.0-8.0); NEUTROPHILS ABSOLUTE AUTO 4.43 K/uL (1.80-7.70); NEUTROPHILS PERCENT AUTO 55.8 % (41.0-71.0); PLATELET COUNT,PLT 265 K/uL (150-400); RED BLOOD CELL COUNT 4.95 M/uL (4.10-5.30); WHITE BLOOD CELL COUNT,WBC 7.93 K/uL (3.9-11.3)
[2023-07-20 13:57] LABS: A/G RATIO 0.9 (0.9-1.6); ALBUMIN 3.8 g/dL (3.4-5.0); BILIRUBIN TOTAL 0.4 mg/dL (0.2-1.0); CALCIUM 9.2 mg/dL (8.5-10.1); CARBON DIOXIDE,CO2 27.8 mmol/L (21.0-32.0); CREATININE 0.9 mg/dL (0.6-1.0); EST CRCL DRUG DOSING (CG) 77.76 mL/min; POTASSIUM,K 3.9 mmol/L (3.5-5.1); TSH ULTRASENSITIVE 1.25 uIU/mL (0.36-3.74)
[2023-07-20] MEDS ORDERED: Adenosine 6 MG/2 ML SDV ONE (14:23)
[2023-07-20] MEDS ORDERED: Diltiazem 25 MG/5 ML SDV IVPUSH ONE (14:34)
[2023-07-20] MEDS ORDERED: Adenosine 6 MG/2 ML SDV IVPUSH ONE (14:35)
[2023-07-20] MEDS ORDERED: Diltiazem 120 MG Cap.CD PO ONE (14:51)
[2023-07-20] MEDS ORDERED: Aspirin 81 MG Tab.Chew PO ONE (15:15)
[2023-07-20] MEDS ORDERED: Diltiazem 100 MG in Sodium Chloride 0.9% 100 ML IV SCH (15:15)
[2023-07-20 18:07] VITALS: BP 117/76; PULSE 101
== END 2023-07-20 18:41 ==
LOC: MW.ED 12:53
DX: I48.91 Unspecified atrial fibrillation (principal); E66.9 Obesity, unspecified; Z79.899 Other long term (current) drug therapy; Z68.35 Body mass index [BMI] 35.0-35.9, adult
CPT/HCPCS: 36415; 71045; 80053; 83735; 83880; 84443; 84484; 85025; 85379; 93005; 96365; 96375; 96376; 99285; A9270; J0153; J3490; 93010; 99291